=== PATIENT | female | born 1940 | race Caucasian/White ===

== ENCOUNTER → 2020-07-25 11:05 | Outpatient (CLI) | payer SELFPAY ==
--- NOTE | ~2020-07-25 | XR_ITS ---
EXAMINATION: XR lumbar spine 2-3V DATE: 07/25/2020 12:09 INDICATION: Low back pain TECHNIQUE: Anteroposterior and lateral views of the lumbar spine, and cone-down lateral view of the l umbosacral junction were obtained. COMPARISON: CT dated 03/22/2008 FINDINGS: 30 degree thoracolumbar dextroscoliosis measured between T10 and L3. Sagittal alignment is normal. Ve rtebral body heights are normal. Severe disc height loss at L3-L4 and L4-L5, moderate disc height los s at L2-L3 and on the left side of L1-L2 and mild disc height loss at L5-S1 and at several levels in the lower thoracic spine. 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 Moderate bilateral sacral iliac osteoarthritis. Surgical clips and suture line s at the left side of the lumbar spine consistent with prior left nephrectomy. Visualized lung bases are clear. Heart size is normal. IMPRESSION: 1. 30 degrees thoracolumbar dextroscoliosis with severe lumbar spondylosis. Reviewed, dictated and finalized at location A.
== END ==
PROVIDERS: Visit Provider Chiropractor Rehabilitation
DX: M47.896 Other spondylosis, lumbar region (principal)
CPT/HCPCS: 72100